=== PATIENT | male | born 1975 | race Hispanic/Latino ===

== ENCOUNTER 2023-02-06 05:45 | Day surgery (SDC) | payer OTHER ==
[2023-02-02 10:28] LABS: BASOPHILS % (AUTO) 0.7 % (0.0-5.0); EOSINOPHILS % (AUTO) 1.8 % (0.0-8.0); HEMATOCRIT 42.2 % (42-54); LYMPHOCYTES % (AUTO) 24.9 % (21.0-51.0); MEAN CORPUSCULAR HEMOGLOBIN 25.2 pg (27.0-33.0); MEAN CORPUSCULAR HGB CONC 31.3 g/dL (32.0-36.0); MEAN CORPUSCULAR VOLUME 80.7 fL (79-99); MONOCYTES % (AUTO) 6.2 % (3.0-13.0); NEUTROPHILS % (AUTO) 65.9 % (40.0-77.0); PLATELET COUNT (AUTO) 163 K/uL (130-400); RED BLOOD CELL COUNT(AUTO) 5.23 MIL/uL (4.50-6.20); RED CELL DISTRIBUTION WIDTH 14.2 % (11.0-15.5)
[2023-02-02 10:32] LABS: CREATININE 0.9 mg/dL (0.5-1.5); POTASSIUM 3.9 mmol/L (3.5-5.1)
[2023-02-02 10:34] VITALS: BP 128/80; PULSE 78; RESP 16
[2023-02-06] VITALS (19 sets, daily range): BP systolic 102–123; BP diastolic 56–80; PULSE 75–102; RESP 12–20
[~2023-02-06] VITALS: Ht 172.7 cm; Wt 87.3 kg
[~2023-02-06 05:45] MED LIST: ACET-66 PO; DICLOFENAC PO
[2023-02-06] MEDS ORDERED: CEFAZOLIN SODIUM 2 GM VIAL ONE (06:14)
[2023-02-06] MEDS ORDERED: LACTATED RINGERS 1000ML 1,000 ML IV ONE (06:14)
[2023-02-06] MEDS ORDERED: LIDOCAINE PF 100MG/5ML (2%) SYRINGE 5ML ONE (06:56)
[2023-02-06] MEDS ORDERED: FENTANYL CITRATE PF 50 MCG/1 ML 2ML VIAL ONE ×2 (06:56→08:13)
[2023-02-06] MEDS ORDERED: ONDANSETRON 4MG INJ ONE (06:56)
[2023-02-06] MEDS ORDERED: MIDAZOLAM HCL 1 MG/ML 2ML VIAL ONE (06:56)
[2023-02-06] MEDS ORDERED: DEXAMETHASONE SOD PHOSPHATE 10MG/ML 1ML VIAL ONE (06:56)
[2023-02-06] MEDS ORDERED: PROPOFOL 10 MG/ML 20ML VIAL IV ONE (06:56)
[2023-02-06] MEDS ORDERED: ROCURONIUM 10MG/1ML SYR 10 MG/ML ML ONE ×2 (06:57→08:10)
[2023-02-06] MEDS ORDERED: EPHEDRINE SULFATE 50 MG/ML AMPULE ONE (07:49)
[2023-02-06] MEDS ORDERED: HYDROCODONE/ACETAMINOPHEN 10/325 MG TAB PO PRN (08:00)
[2023-02-06] MEDS ORDERED: SUGAMMADEX SODIUM 200 MG/2 ML VIAL IV ONE (08:27)
[2023-02-06] MEDS ORDERED: MEPERIDINE-PF 25 MG/ML SYG ONE (09:13)
== END 2023-02-06 10:50 | disposition home or self-care (01) ==
LOC: DAH 05:45
PROVIDERS: ATTEND Orthopaedic Surgery
DX: T84.84XA Pain due to internal orthopedic prosthetic devices, implants and grafts, initial encounter (principal); Z20.822 Contact with and (suspected) exposure to COVID-19; M25.552 Pain in left hip; E66.3 Overweight; Z68.29 Body mass index [BMI] 29.0-29.9, adult; Y83.8 Other surgical procedures as the cause of abnormal reaction of the patient, or of later complication, without mention of misadventure at the time of the procedure; Y92.89 Other specified places as the place of occurrence of the external cause
CPT/HCPCS: 87426; 80048; 85025; 36415; 20680; 73552; A6260; A4663; J7120 ×2; J3010 ×2; J1100; J2001; J3490; J2250; J2704; J2405; J2175; J0690; A6223; A6212; A5120; A4215; A4223; A4222; A4221